=== PATIENT | female | born 1950 | race Caucasian/White ===

== ENCOUNTER 2017-10-01 02:19 | Emergency (ER) | payer MEDICARE, MEDICAID ==
[~2017-10-01] VITALS: Ht 152.4 cm; Wt 89.5 kg
[2017-10-01] MEDS ORDERED: ONDANSETRON HCL 4MG/2ML VIAL IV STA (03:19)
[2017-10-01] MEDS ORDERED: ASPIRIN 81MG TABLET PO ONE (03:30)
[2017-10-01 03:49] LABS: BASOPHILS % 0.6 % (0.0-2.0); EOSINOPHILS % 0.8 % (0.0-5.0); HEMATOCRIT. 41.5 % (36.0-48.0); HEMOGLOBIN. 13.7 g/dL (12.0-16.0); LYMPHOCYTES % 18.3 % (20.0-50.0); MEAN CORPUSCULAR HEMOGLOBIN 28.9 pg (28.0-32.0); MEAN CORPUSCULAR VOLUME 87.7 fL (81.0-99.0); MEAN PLATELET VOLUME 9.7 fl (7.4-10.4); NEUTROPHILS % 74.3 % (40.0-76.0); PLATELET 265 x1000/uL (130-400); RED BLOOD CELL COUNT 4.73 mill/uL (4.2-5.4); RED CELL DISTRIBUTION WIDTH 13.3 % (11.6-14.6)
[2017-10-01 03:53] LABS: INR 1.1; PROTHROMBIN TIME 11.6 sec (9.4-11.6)
[2017-10-01 04:03] LABS: CARBON DIOXIDE 28 mEq/L (21-32); CHLORIDE 98 mEq/L (98-107); TROPONIN I < 0.02 ng/mL (0.00-0.04)
[2017-10-01] MEDS ORDERED: SODIUM CHLORIDE 0.9% 1,000 ML IV ONE (06:15)
[2017-10-01] MEDS ORDERED: METOCLOPRAMIDE HCL 10MG/2ML VIAL IV ONE (06:15)
[2017-10-01] MEDS ORDERED: DIPHENHYDRAMINE 50MG/ML VIAL IV ONE (06:15)
[2017-10-01] MEDS ORDERED: KETOROLAC 15MG/ML VIAL IV ONE (06:15)
[2017-10-01 06:50] VITALS: BP 149/70
== END 2017-10-01 06:55 | disposition home or self-care (01) ==
LOC: ER 03:27
DX: R42 Dizziness and giddiness (principal); R07.89 Other chest pain; R51 Headache; R11.0 Nausea; I10 Essential (primary) hypertension; E11.9 Type 2 diabetes mellitus without complications; I45.10 Unspecified right bundle-branch block; E78.00 Pure hypercholesterolemia, unspecified; Z79.899 Other long term (current) drug therapy
CPT/HCPCS: 36415; 71045; 80053; 82962; 83880; 84484; 85025; 85610; 87804; 93005; 96374; 99285; J1200; J7030; J1885; J2405; J2765